=== PATIENT | male | born 1985 | race Hispanic/Latino ===

== ENCOUNTER 2021-01-24 09:03 | Emergency (ER) | payer OTHER ==
[~2021-01-24] VITALS: Ht 188 cm; Wt 92.7 kg
[2021-01-24 09:03] VITALS: BP 153/63
--- NOTE | 2021-01-24 09:44 | REP ---
INDICATION: dropped chain on foot COMPARISON: None. TECHNIQUE: There are four views. FINDINGS: There is a nondisplaced fracture of the distal tuft of the distal phalange. There is no dislocation. Mineralization and joint spaces are normal. There are no calcifications or foreign bodies. IMPRESSION: Nondisplaced fracture of the distal tuft of the distal phalange. <Electronically signed by Alen Cabrera > 01/24/21 0919
[2021-01-24] MEDS ORDERED: IBUPROFEN 400MG TAB PO ONE (10:05)
[2021-01-24] MEDS ORDERED: CEPHALEXIN 500 MG CAP PO ONE (10:10)
[2021-01-24] MEDS ORDERED: CEPH25SS PO (10:14)
== END 2021-01-24 10:39 | disposition home or self-care (01) ==
LOC: M ED 09:03
DX: S92.424A Nondisplaced fracture of distal phalanx of right great toe, initial encounter for closed fracture (principal); W20.8XXA Other cause of strike by thrown, projected or falling object, initial encounter; Y92.9 Unspecified place or not applicable; Y93.9 Activity, unspecified; Y99.1 Military activity